=== PATIENT | male | born 1990 | race Caucasian/White ===

== ENCOUNTER 2020-10-11 12:24 | Inpatient (IN) | payer OTHER ==
[2020-10-11 14:47] VITALS: BMI 33.2
[2020-10-11] MEDS ORDERED: MAG HYDROX/AL HYDROX/SIMETH 30 ML UNIT-DOSE CUP PO PRN (17:08)
[2020-10-11] MEDS ORDERED: MENTHOL/PHENOL 1 EACH UD MM PRN (17:08)
[2020-10-11] MEDS ORDERED: METHOCARBAMOL 500 MG TABLET PO PRN (17:08)
[2020-10-11] MEDS ORDERED: MAGNESIUM CITRATE 300 ML BOTTLE PO PRN (17:08)
[2020-10-11] MEDS ORDERED: MAGNESIUM HYDROX 2400MG/30ML ORAL SUSPENSION 30 ML CUP PO PRN (17:08)
[2020-10-11] MEDS ORDERED: ACETAMINOPHEN 325 MG TABLET (FP) PO PRN ×2 (17:08)
[2020-10-11] MEDS ORDERED: BISMUTH SUBSALICYLATE 524 MG/30 ML UD PO PRN (17:08)
[2020-10-11] MEDS ORDERED: ONDANSETRON *ODT* 4 MG TABLET SL PRN (17:08)
[2020-10-11] MEDS ORDERED: IBUPROFEN 400 MG TABLET (FP) PO PRN (17:08)
[2020-10-11] MEDS ORDERED: METHADONE HCL 10 MG TABLET PO ONE (17:12)
[2020-10-11] MEDS ORDERED: MELATONIN 5 MG TABLETS PO PRN (17:25)
[2020-10-11] MEDS ORDERED: diazePAM 5 MG TABLET PO ONE (18:00)
[2020-10-11] MEDS ORDERED: METHADONE HCL 10 MG TABLET ONE (18:51)
[2020-10-11] MEDS ORDERED: METHADONE HCL 40 MG DISPERSABLE TABLET ONE (18:52)
[2020-10-11] MEDS ORDERED: METHADONE HCL 5 MG TABLET ONE (18:52)
[2020-10-11] MEDS: METHADONE 120 MG, METHADONE 10 MG, METHADONE 5 MG PO SCH (19:01)
[2020-10-11] MEDS ORDERED: MELATONIN 5 MG TABLETS PO SCH (22:00)
[2020-10-11] MEDS: diazePAM 5 MG TABLET PO SCH (22:41)
[2020-10-11] MEDS: THIAMINE HCL 100 MG TABLET (FP) PO SCH (22:41)
[2020-10-12] MEDS: diazePAM 5 MG TABLET PO SCH ×4 (06:41→22:05)
[2020-10-12] MEDS ORDERED: METHADONE HCL 40 MG DISPERSABLE TABLET ONE (09:47)
[2020-10-12] MEDS ORDERED: METHADONE HCL 5 MG TABLET ONE (09:47)
[2020-10-12] MEDS ORDERED: METHADONE HCL 10 MG TABLET ONE (09:47)
[2020-10-12] MEDS ORDERED: METHADONE HCL 10 MG TABLET PO ONE (10:00)
[2020-10-12] MEDS: NICOTINE 14 MG/24 HOURS TOPICAL PATCH TD SCH (10:40)
[2020-10-12] MEDS: METHADONE 120 MG, METHADONE 10 MG, METHADONE 5 MG PO SCH (10:40)
[2020-10-12] MEDS: PRENATAL VITAMINS W/ FOLIC ACID TABLET (FP) PO SCH (10:40)
[2020-10-12] MEDS: NICOTINE POLACRILEX 2 MG GUM BUC PRN ×2 (10:45→16:46)
[2020-10-12 11:46] LABS: HEMATOCRIT 35.9 % (35.4-49); HEMOGLOBIN 12.4 GM/dL (11.7-16.9); MCH 31.1 pg (25.7-33.7); MCHC 34.6 g/dl (32.0-35.9); MEAN CELL VOLUME 89.9 fl (80-96); MEAN PLT VOLUME 8.2 fl (7.5-11.1); PLATELET COUNT 179 K/MM3 (134-434); RBC 3.99 M/mm3 (4.00-5.60); RDW 13.7 % (11.9-15.9); WHITE BLOOD COUNT 5.6 K/mm3 (4.0-10.0)
[2020-10-12 11:48] LABS: POTASSIUM 4.1 mmol/L (3.5-5.1)
[2020-10-12 11:54] LABS: CALCIUM 8.6 mg/dL (8.5-10.1)
[2020-10-12 11:58] LABS: CREATININE 1.1 mg/dL (0.55-1.3)
[2020-10-12 11:59] LABS: BILIRUBIN,TOTAL 0.4 mg/dL (0.2-1); TOT PROT 6.6 g/dl (6.4-8.2)
[2020-10-12] MEDS ORDERED: hydrOXYzine PAMOATE 25 MG CAPSULE (FP) PO PRN (13:55)
[2020-10-12] MEDS: MIRTAZAPINE 15 MG TABLET (FP) PO SCH (22:04)
[2020-10-12] MEDS: THIAMINE HCL 100 MG TABLET (FP) PO SCH (22:04)
[2020-10-12] MEDS: busPIRone HCL 10 MG TABLET (FP) PO SCH (22:04)
[2020-10-13] MEDS: diazePAM 5 MG TABLET PO SCH ×3 (05:56→21:40)
[2020-10-13] MEDS ORDERED: METHADONE HCL 10 MG TABLET PO ONE (09:16)
[2020-10-13] MEDS ORDERED: METHADONE 120 MG, METHADONE 10 MG, METHADONE 5 MG PO ONE (10:00)
[2020-10-13] MEDS ORDERED: METHADONE HCL 40 MG DISPERSABLE TABLET ONE (10:03)
[2020-10-13] MEDS ORDERED: METHADONE HCL 10 MG TABLET ONE (10:03)
[2020-10-13] MEDS ORDERED: METHADONE HCL 5 MG TABLET ONE (10:04)
[2020-10-13] MEDS: busPIRone HCL 10 MG TABLET (FP) PO SCH ×2 (10:13→21:40)
[2020-10-13] MEDS: NICOTINE 14 MG/24 HOURS TOPICAL PATCH TD SCH (10:13)
[2020-10-13] MEDS: PRENATAL VITAMINS W/ FOLIC ACID TABLET (FP) PO SCH (10:13)
[2020-10-13] MEDS: diazePAM 5 MG TABLET PO PRN ×3 (10:15→18:17)
[2020-10-13 11:45] LABS: GLUCOSE,FASTING 93 mg/dL (74-106)
[2020-10-13 11:48] LABS: SGOT/AST 46 U/L (15-37)
[2020-10-13] MEDS: MIRTAZAPINE 15 MG TABLET (FP) PO SCH (21:40)
[2020-10-13] MEDS: THIAMINE HCL 100 MG TABLET (FP) PO SCH (21:40)
[2020-10-14] MEDS ORDERED: METHADONE HCL 10 MG TABLET ONE (04:08)
[2020-10-14] MEDS ORDERED: METHADONE HCL 40 MG DISPERSABLE TABLET ONE (04:08)
[2020-10-14] MEDS ORDERED: METHADONE HCL 5 MG TABLET ONE (04:09)
[2020-10-14] MEDS: METHADONE 120 MG, METHADONE 10 MG, METHADONE 5 MG PO SCH (05:52)
[2020-10-14] MEDS: diazePAM 5 MG TABLET PO SCH ×2 (05:53→17:20)
[2020-10-14] MEDS ORDERED: METHADONE HCL 40 MG DISPERSABLE TABLET PO SCH (06:00)
[2020-10-14] MEDS: NICOTINE POLACRILEX 2 MG GUM BUC PRN ×2 (08:40→14:38)
[2020-10-14] MEDS: diazePAM 5 MG TABLET PO PRN ×2 (10:00→14:38)
[2020-10-14] MEDS: PRENATAL VITAMINS W/ FOLIC ACID TABLET (FP) PO SCH (10:00)
[2020-10-14] MEDS: busPIRone HCL 10 MG TABLET (FP) PO SCH ×2 (10:00→22:09)
[2020-10-14] MEDS: NICOTINE 14 MG/24 HOURS TOPICAL PATCH TD SCH (10:00)
[2020-10-14] MEDS: MIRTAZAPINE 15 MG TABLET (FP) PO SCH (22:10)
[2020-10-14] MEDS: THIAMINE HCL 100 MG TABLET (FP) PO SCH (22:11)
[2020-10-15] MEDS ORDERED: METHADONE HCL 10 MG TABLET ONE (04:11)
[2020-10-15] MEDS ORDERED: METHADONE HCL 5 MG TABLET ONE (04:12)
[2020-10-15] MEDS ORDERED: METHADONE HCL 40 MG DISPERSABLE TABLET ONE (04:12)
[2020-10-15] MEDS: METHADONE 120 MG, METHADONE 10 MG, METHADONE 5 MG PO SCH (05:38)
[2020-10-15] MEDS ORDERED: diazePAM 5 MG TABLET PO ONE (06:00)
[2020-10-15 08:43] VITALS: BP 108/61; PULSE 77; TEMP 96.9
[2020-10-15] MEDS: NICOTINE 14 MG/24 HOURS TOPICAL PATCH TD SCH (09:27)
[2020-10-15] MEDS: PRENATAL VITAMINS W/ FOLIC ACID TABLET (FP) PO SCH (09:27)
[2020-10-15] MEDS: busPIRone HCL 10 MG TABLET (FP) PO SCH (09:27)
== END 2020-10-15 09:32 | disposition home or self-care (01) | DRG 774 ==
LOC: YASAS 12:24 → Y3N 17:08
PROVIDERS: ADMIT Allergy & Immunology; ATTEND Allergy & Immunology
PROC: HZ2ZZZZ Detoxification Services for Substance Abuse Treatment (ICD-10-PCS; principal; 2020-10-11)
DX: F13.230 Sedative, hypnotic or anxiolytic dependence with withdrawal, uncomplicated (principal); F14.20 Cocaine dependence, uncomplicated; F12.20 Cannabis dependence, uncomplicated; F17.210 Nicotine dependence, cigarettes, uncomplicated; F19.282 Other psychoactive substance dependence with psychoactive substance-induced sleep disorder; F19.24 Other psychoactive substance dependence with psychoactive substance-induced mood disorder; F41.9 Anxiety disorder, unspecified; E88.09 Other disorders of plasma-protein metabolism, not elsewhere classified; B18.2 Chronic viral hepatitis C; R73.9 Hyperglycemia, unspecified; R74.01 Elevation of levels of liver transaminase levels; R79.89 Other specified abnormal findings of blood chemistry; Z56.0 Unemployment, unspecified; Z59.0 Homelessness
CPT/HCPCS: 36415; 80053; 82947; 83036; 84450; 85027; 86780; 93005; 93010; C9803; U0003; U0005